=== PATIENT | female | born 1990 | race Caucasian/White ===

== ENCOUNTER 2021-04-17 23:05 | Emergency (ER) | payer SELFPAY ==
[2021-04-17 23:28] VITALS: BP 132/89
--- NOTE | 2021-04-17 23:49 | ED Physician Documentation ---
PD HPI SKIN - Stated complaint Stated Complaint: R PINKY LAC - Chief complaint Chief Complaint: Laceration - History obtained from History obtained from: Patient - Additional information Additional information: Patient comes emergency department chief complaint of splinter to right small finger. He states that he was working with wood when a sliver plunged into his finger. He is not sure how long the piece of wood was, as he jerked his hand off of it and the wood came out spontaneously. Patient states that he is able to move his finger without difficulty but is worried because he feels a little sense of numbness at the fingertip. He is also concerned that there may be some wood residue left in the wound. No other injuries or complaints. Review of Systems Ten Systems: 10 systems reviewed and negative Constitutional: reports: Reviewed and negative Eyes: reports: Reviewed and negative Ears: reports: Reviewed and negative Nose: reports: Reviewed and negative Throat: reports: Reviewed and negative Cardiac: reports: Reviewed and negative Respiratory: reports: Reviewed and negative GI: reports: Reviewed and negative : reports: Reviewed and negative Skin: reports: Other (Puncture wound) Musculoskeletal: reports: Reviewed and negative Neurologic: reports: Reviewed and negative Psychiatric: reports: Reviewed and negative Endocrine: reports: Reviewed and negative Immunocompromised: reports: Reviewed and negative PD PAST MEDICAL HISTORY - Present Medications Home Medications: Ambulatory Orders Medication Instructions Recorded Confirmed Dextroamphetamine/Amphetamine 30 mg PO DAILY 04/17/21 04/17/21 [Adderall 30 mg Tablet] Spironolactone [Aldactone] 50 mg PO DAILY 04/17/21 04/17/21 - Allergies Allergies/Adverse Reactions: Allergies Allergy/AdvReac Type Severity Reaction Status Date / Time No Known Drug Allergies Allergy Verified 04/17/21 23:21 PD ED PE NORMAL - Vitals Vital signs reviewed: Yes - General General: Alert and oriented X 3, No acute distress - HEENT HEENT: Atraumatic, PERRL, EOMI, Moist mucous membranes - Neck Neck: Supple, no meningeal sign - Cardiac Cardiac: Strong equal pulses - Respiratory Respiratory: No respiratory distress - Derm Derm: Normal color, Warm and dry, No rash, Other (3 mm laceration to ulnar aspect of right small finger over the distal phalanx, not involving nail or nailbed. Bleeding is controlled. No palpable or visual foreign body.) - Extremities Extremities: No deformity, No edema, Other (Full range of motion right small finger) - Neuro Neuro: Alert and oriented X 3, No motor deficit, No sensory deficit - Psych Psych: Normal mood, Normal affect Results - Vitals Vitals: Vital Signs - 24 hr 04/17/21 23:10 Temperature 36.2 C L Heart Rate 85 Respiratory 16 Rate Blood Pressure 132/89 H O2 Saturation 100 Oxygen O2 Source Room air PD MEDICAL DECISION MAKING - ED course Complexity details: considered differential, d/w patient ED course: The patient was well-appearing and I discussed with him that I do not find any evidence of a significant foreign body in the wound. If there are very small slivers of wood left deep in the wound, they will have to come out on their own, and it is not reasonable to try to find them and fish them out in the emergency department. We have discussed the signs of infection and the usual indications for return. I do not feel x-ray will be helpful, as small slivers of wood are unlikely to show up on it. Departure - Departure Disposition: 01 Home, Self Care Clinical Impression: Puncture wound Condition: Stable Instructions: ED Wound Puncture General Comments: There is no way to tell if tiny slivers of wood are left in your finger. There is no evidence of a large splinter that would be removable here in the emergency department. Please soak your finger in a salt water solution and leave it open to air to heal. If it turns red with redness spreading progressively away from the wound or drains anything that appears like pus, please have it rechecked.
== END 2021-04-18 00:04 | disposition home or self-care (01) ==
LOC: ED 23:05
DX: S61.236A Puncture wound without foreign body of right little finger without damage to nail, initial encounter (principal); W45.8XXA Other foreign body or object entering through skin, initial encounter; Y93.89 Activity, other specified
CPT/HCPCS: 99281; 99282

== ENCOUNTER 2022-03-30 08:00 | Outpatient (CLI) | payer SELFPAY | END 2022-03-30 23:59 | disposition home or self-care (01) | LOC: LAB.N 08:00 | PROVIDERS: ATTEND Physician Assistant Medical | DX: R30.0 Dysuria (principal) | CPT/HCPCS: 87086 ==

== ENCOUNTER 2023-09-01 15:40 | Emergency (ER) | payer MEDICAID ==
[2023-09-01 16:18] LABS: BASOPHILS % (AUTO) 0.4 %; EOSINOPHILS # (AUTO) 0.1 10^3/uL (0.0-0.7); HCT - HEMATOCRIT 44.1 % (37.0-47.0); HGB - HEMOGLOBIN 14.2 g/dL (12.0-16.0); LYMPHOCYTES # (AUTO) 2.3 10^3/uL (1.5-3.5); LYMPHOCYTES % (AUTO) 25.8 %; MEAN CORPUSCULAR HEMOGLOBIN 30.1 pg (27.0-31.0); MEAN CORPUSCULAR HGB CONC 32.2 g/dL (32.0-36.0); MEAN CORPUSCULAR VOLUME 93.6 fL (81.0-99.0); MEAN PLATELET VOLUME 11.4 fL (7.9-10.8); MONOCYTES # (AUTO) 0.7 10^3/uL (0.0-1.0); MONOCYTES % (AUTO) 7.6 %; NEUTROPHILS # (AUTO) 5.8 10^3/uL (1.5-6.6); NEUTROPHILS % (AUTO) 64.9 %; PLT - PLATELET COUNT 233 10^3/uL (130-450); RED BLOOD COUNT 4.71 10^6/uL (4.20-5.40); RED CELL DISTRIBUTION WIDTH 12.6 % (12.0-15.0)
[2023-09-01 16:27] LABS: BILIRUBIN,URINE NEGATIVE (NEGATIVE); GLUCOSE, URINE (UA) NEGATIVE (NEGATIVE); KETONES,URINE (UA) NEGATIVE (NEGATIVE); LEUKOCYTE ESTERASE, URINE NEGATIVE (NEGATIVE); NITRITE,URINE NEGATIVE (NEGATIVE); OCCULT BLOOD,URINE NEGATIVE (NEGATIVE); PH,URINE 7.5 PH (5.0-7.5); PROTEIN,URINE NEGATIVE (NEGATIVE); UROBILINOGEN,URINE 0.2 (NORMAL) E.U./dL (NORMAL)
[2023-09-01 16:33] LABS: CLARITY,URINE CLEAR (CLEAR)
[2023-09-01 16:42] LABS: ALBUMIN 4.7 g/dL (3.2-5.5); ALBUMIN/GLOBULIN RATIO 1.7 (1.0-2.2); BILIRUBIN,TOTAL 0.3 mg/dL (0.2-1.0); CALCIUM 9.5 mg/dL (8.5-10.3); CREATININE 0.7 mg/dL (0.6-1.3); POTASSIUM 4.3 mmol/L (3.5-4.5); TOTAL PROTEIN 7.5 g/dL (6.4-8.9)
[2023-09-01 17:27] LABS: HCG UR QUAL NEGATIVE
[2023-09-01] MEDS ORDERED: LIDOCAINE-MPF 2% 6 ML in SODIUM CHLORIDE 0.9% 50 ML IV STA (18:05)
[2023-09-01] MEDS ORDERED: KETOROLAC 30 MG/ML VIAL IVP STA (18:05)
--- NOTE | 2023-09-01 19:09 | ED Physician Documentation ---
History of Present Illness - Stated complaint Stated Complaint: LOWER ABD PX - Chief complaint Chief Complaint: Abd Pain - History obtained from History obtained from: Patient, Family - History of Present Illness Pain level max: 6 Pain level now: 5 - Additonal information Additional information: 32-year-old transgender female who presents to the emergency department with right flank pain that started last night and has continued today. Nothing seems to make it better or worse. Described as dull, aching. No fevers. No chills. No nausea or vomiting. No diarrhea or constipation. No blood in the stool. No blood in the urine but has had urinary frequency. No headache. No changes in sexual partners. There is a family history of ureteral stones. Review of Systems Constitutional: denies: Fever, Chills Respiratory: denies: Cough GI: denies: Vomiting, Hematemesis, Bloody / black stool : reports: Dysuria, Frequency, Hesitancy Skin: denies: Rash Musculoskeletal: denies: Neck pain, Back pain Neurologic: denies: Headache PD PAST MEDICAL HISTORY - Past Medical History Past Medical History: Yes Psych: Depression, Anxiety, ADD/ADHD - Past Surgical History Past Surgical History: No - Present Medications Home Medications: Ambulatory Orders Medication Instructions Recorded Confirmed Dextroamphetamine/Amphetamine 30 mg PO DAILY 04/17/21 09/01/23 [Adderall 30 mg Tablet] Citalopram Hydrobromide [Celexa] 20 mg ORAL DAILY 09/01/23 09/01/23 Phenazopyridine HCl [Pyridium] 200 mg PO TID PRN #6 tablet 09/01/23 Progesterone, Micronized 100 mg PO DAILY 09/01/23 09/01/23 [Prometrium] buPROPion [Wellbutrin Xl] 150 mg ORAL DAILY 09/01/23 09/01/23 cephALEXin [Keflex] 500 mg PO Q6H #20 cap 09/01/23 estradioL [Estradiol] 2 mg PO DAILY 09/01/23 09/01/23 oxyCODONE [Roxicodone] 5 - 10 mg PO Q6H PRN #10 tablet 09/01/23 MDD 6 - Allergies Allergies/Adverse Reactions: Allergies Allergy/AdvReac Type Severity Reaction Status Date / Time No Known Drug Allergies Allergy Verified 04/17/21 23:21 - Social History Does the pt smoke?: No Smoking Status: Former smoker Does the pt drink ETOH?: No Does the pt have substance abuse?: No - Immunizations Immunizations are current?: Yes PD ED PE NORMAL - Vitals Vital signs reviewed: Yes - General General: Alert and oriented X 3, No acute distress - HEENT HEENT: Moist mucous membranes - Neck Neck: Supple, no meningeal sign - Cardiac Cardiac: RRR, Strong equal pulses - Respiratory Respiratory: No respiratory distress, Clear bilaterally - Abdomen Abdomen: Soft, Non tender, Non distended - Back Back: No CVA TTP, No spinal TTP - Derm Derm: Warm and dry - Extremities Extremities: No edema, No calf tenderness / cord - Neuro Neuro: Alert and oriented X 3 - Psych Psych: Normal mood, Normal affect - Free text exam Free text exam: Mild diffuse testicular tenderness. No penile discharge. Results - Vitals Vitals: Vital Signs - 24 hr 09/01/23 09/01/23 09/01/23 15:53 17:56 19:29 Temperature 36.6 C Heart Rate 99 76 72 Respiratory 20 18 16 Rate Blood Pressure 145/86 H 126/89 H O2 Saturation 98 97 98 09/01/23 09/01/23 09/01/23 20:10 21:22 21:50 Temperature Heart Rate 71 72 85 Respiratory 18 16 16 Rate Blood Pressure 141/86 H 141/99 H 139/100 H O2 Saturation 96 94 98 Oxygen O2 Source Room air - Labs Labs: Laboratory Tests 09/01/23 09/01/23 09/01/23 16:10 16:10 16:20 WBC 9.0 RBC 4.71 Hgb 14.2 Hct 44.1 MCV 93.6 MCH 30.1 MCHC 32.2 RDW 12.6 Plt Count 233 MPV 11.4 H Neut # (Auto) 5.8 Lymph # (Auto) 2.3 [place] # (Auto) 0.7 Eos # (Auto) 0.1 Baso # (Auto) 0.0 Absolute Nucleated RBC 0.00 Nucleated RBC % 0.0 Sodium 140 Potassium 4.3 Chloride 105 Carbon Dioxide 31 Anion Gap 4.0 L BUN 7 Creatinine 0.7 Estimated GFR (MDRD) 96 Glucose 90 Calcium 9.5 Total Bilirubin 0.3 AST 12 ALT 19 Alkaline Phosphatase 47 Total Protein 7.5 Albumin 4.7 Globulin 2.8 Albumin/Globulin Ratio 1.7 Lipase 26 Urine Color YELLOW Urine Clarity CLEAR Urine pH 7.5 Ur Specific [place] 1.015 Urine Protein NEGATIVE Urine Glucose (UA) NEGATIVE Urine Ketones NEGATIVE Urine Occult Blood NEGATIVE Urine Nitrite NEGATIVE Urine Bilirubin NEGATIVE Urine Urobilinogen 0.2 (NORMAL) Ur Leukocyte Esterase NEGATIVE Ur Microscopic Review NOT INDICATED Urine Culture Comments NOT INDICATED Urine HCG, Qual 09/01/23 16:20 WBC RBC Hgb Hct MCV MCH MCHC RDW Plt Count MPV Neut # (Auto) Lymph # (Auto) [place] # (Auto) Eos # (Auto) Baso # (Auto) Absolute Nucleated RBC Nucleated RBC % Sodium Potassium Chloride Carbon Dioxide Anion Gap BUN Creatinine Estimated GFR (MDRD) Glucose Calcium Total Bilirubin AST ALT Alkaline Phosphatase Total Protein Albumin Globulin Albumin/Globulin Ratio Lipase Urine Color Urine Clarity Urine pH Ur Specific [place] Urine Protein Urine Glucose (UA) Urine Ketones Urine Occult Blood Urine Nitrite Urine Bilirubin Urine Urobilinogen Ur Leukocyte Esterase Ur Microscopic Review Urine Culture Comments Urine HCG, Qual NEGATIVE - Rads (name of study) CT abdomen pelvis Relevant Findings:: Final report received, See rad report Testicular ultrasound Relevant Findings:: Final report received, See rad report PD Medical Decision Making - ED course Complexity details: reviewed results, re-evaluated patient, considered differential, d/w patient, d/w family ED course: No acute findings on CT scan, laboratory testing or ultrasound. Patient is having symptoms of UTI and so we will trial on Pyridium and antibiotics. The flank pain and abdominal pain improved with Toradol and IV lidocaine. Was also given a dose of IV morphine. Will place on pain medication for home. Patient is well-appearing, nontoxic. Afebrile. No evidence of sepsis. Urinalysis is negative, but given the symptoms we will treat. Patient counseled regarding signs and symptoms for which I believe and urgent re-evaluation would be necessary. Patient with good understanding of and agreement to plan and is comfortable going home at this time This document was made in part using voice recognition software. While efforts are made to proofread this document, sound alike and grammatical errors may occur. No changes in sexual partners. No STI exposure Departure - Departure Disposition: 01 Home, Self Care Clinical Impression: Dysuria UTI (urinary tract infection) Qualifiers: Urinary tract infection type: acute cystitis Hematuria presence: without hematuria Qualified Code(s): N30.00 - Acute cystitis without hematuria Abdominal pain Qualifiers: Abdominal location: unspecified location Qualified Code(s): R10.9 - Unspecified abdominal pain Condition: Good Instructions: ED UTI Cystitis Male Follow-Up: your,doctor in 1 week if not better [Other] Prescriptions: cephALEXin [Keflex] 500 mg PO Q6H #20 cap Phenazopyridine HCl [Pyridium] 200 mg PO TID PRN #6 tablet PRN Reason: dysuria oxyCODONE [Roxicodone] 5 - 10 mg PO Q6H PRN #10 tablet MDD 6 PRN Reason: pain Comments: The cause of your symptoms is unclear tonight. Your blood work, CT scan, ultrasound and urinalysis are normal. Your symptoms are consistent with possi ble UTI, so we will treat you for this. The Pyridium will help to decrease the discomfort of urination and hopefully the burning. You can use oxycodone for breakthrough pain. Take all antibiotics until gone. Return if you worsen. Your prescriptions were sent to [facility] I am prescribing a short course of narcotic pain medication for you. These are potentially dangerous and addictive medications that should be used carefully. These medications may constipate you. Take an [id number] stool softener (docusate) twice daily with plenty of water while taking these medications. If you go 24 hours without a bowel movement, take [id number] miralax, per package instructions. Do not drink or drive while taking these medications. If you received narcotic or sedating medications while in the emergency department, do not drive for 24 hours. Store this medication in a safe, secure place and out of reach of children. It is a violation of federal law to give or sell this medication to another person or to use in a manner other than prescribed. The ED will not refill narcotic prescriptions, including prescriptions lost or stolen. To dispose of unwanted medications: 1. [facility] at [address] in [place] has a medication drop box. They accept prescription medications (in pill form) Wednesday through Wednesday 9:00 a.m. to 5:00 p.m. 2. The [facility] [employer] accepts prescription medications (in pill form only) for disposal year round. Call for more information. 3. Contact the [facility] for the next [facility] sponsored prescription drug collection event. , [phone], or [phone]; Forms: PCP List Discharge Date/Time: 09/01/23 22:02
--- NOTE | 2023-09-01 19:22 | CT Report ---
PROCEDURE: ABDOMEN/PELVIS WO INDICATIONS: R flank pain TECHNIQUE: A CT scan of the abdomen and pelvis was performed without the use of intravenous contrast. Images we re recorded and evaluated at appropriate window settings. Reformats: coronal and sagittal. For radiat ion dose reduction, the following was used: automated exposure control, adjustment of mA and/or kV ac cording to patient size. COMPARISON: None. FINDINGS: Image quality: Excellent. Lung bases and heart: Unremarkable. Small hiatal hernia. Liver: No solid mass. Gallbladder and biliary tree: Normal gallbladder. No biliary dilation. Spleen: No splenomegaly. There is a 1.3 cm splenule. Pancreas: No pancreatic ductal dilation. Adrenals: No adrenal nodule. Kidneys and ureters: There is a 3 x 5 mm stone in the inferior pole of the right renal pelvis with CT density 275 Hounsfield units. There is a tiny 1 mm stone in the inferior pole of the left kidney. No hydronephrosis. No renal cystic lesion which requires follow up. No solid mass. Bowel and peritoneum: No bowel distension. No pathologic free fluid. Appendix is normal. Lymph nodes: No central or retroperitoneal adenopathy. Vessels: No infrarenal aortic aneurysm. PELVIS Reproductive organs: Unremarkable. Bladder: No wall thickness, accounting for underdistention. Pelvic lymph nodes: No pelvic adenopathy by size criteria. Bones: No aggressive osseous abnormality. Other: No significant ventral or inguinal hernia. IMPRESSION: 1. Bilateral nonobstructive renal calculi. No hydronephrosis. 2. Normal appendix. Reviewed by: Eulogio Casey MD on 09/01/2023 7:21 PM [facility] Approved by: Eulogio Casey MD on 09/01/2023 7:21 PM PST Station ID: [id number]
[2023-09-01] MEDS ORDERED: MORPHINE 2 MG/ML CARPUJECT IVP STA (19:59)
[2023-09-01] MEDS ORDERED: PHENAZOPYRIDINE 100 MG TABLET PO STA (21:42)
[2023-09-01] MEDS ORDERED: oxyCODONE 5 MG TABLET PO STA (21:42)
[2023-09-01] MEDS ORDERED: cephALEXin 250 MG CAPSULE PO STA (21:42)
--- NOTE | 2023-09-01 21:49 | Ultrasound Report ---
PROCEDURE: Testicle w/Doppler INDICATIONS: B testicular pain TECHNIQUE: Real-time scanning was performed of the scrotum and testicles, with image documentation. Color and p ulse Doppler interrogation was performed of both testicles. COMPARISON: None. FINDINGS: Right: Testicle is normal in size at 5 x 2.5 x 3.3 cm, and homogenous in echotexture. Epididymis is normal in overall size and morphology. Tiny 3 mm right epididymal cyst is seen. Trace hydrocele. No varicoceles. Overlying scrotal skin is normal in thickness. Left: Testicle is normal in size at 4.8 x 2.5 x 2.8 cm, and homogeneous in echotexture. Epididymis is normal in overall size and morphology. 6 mm left epididymal cyst is seen. Trace hydrocele. No clyde icoceles. Overlying scrotal skin is normal in thickness. Doppler: Color and pulse Doppler demonstrate normal and symmetric arterial flow in both testicles. IMPRESSION: 1. Normal-appearing bilateral testes. Trace bilateral hydrocele. No testicular torsion. 2. Subcentimeter bilateral epididymal cysts. Reviewed by: Tomas Garcia MD on 09/01/2023 9:48 PM PST Approved by: Tomas Garcia MD on 09/01/2023 9:48 PM PST Station ID: [id number]
[2023-09-01 21:53] VITALS: BP 139/100; O2SAT 98
== END 2023-09-01 22:02 | disposition home or self-care (01) ==
LOC: ED 15:40
DX: N30.00 Acute cystitis without hematuria (principal); R10.31 Right lower quadrant pain; Z79.899 Other long term (current) drug therapy; Z87.891 Personal history of nicotine dependence
CPT/HCPCS: 36415; 74176; 76870; 80053; 81003; 81025; 83690; 85025; 93975; 96365; 96375; 99284; A9270; J7040; 81001; 87086; 87491; 87591; 87661